=== PATIENT | female | born 1965 | race African-American/Black ===

== ENCOUNTER 2020-02-19 08:01 | Day surgery (SDC) | payer OTHER ==
[2020-02-19] VITALS (9 sets, daily range): BP systolic 124–139; BP diastolic 59–85
[~2020-02-19] VITALS: Ht 170.2 cm; Wt 68.0 kg
[~2020-02-19 08:01] MED LIST: HYDROXYCHLOROQ200 M1 PO
--- NOTE | 2020-02-19 09:33 | Anethesia Preoperative Eval ---
Anesthesia Pre-op PMH/ROS General Date of Evaluation: Feb 19, 2020 Time of Evaluation: 09:31 Anesthesiologist: Teri ASA Score: ASA 2 Mallampati Score Class I : Soft palate, uvula, fauces, pillars visible Class II: Soft palate, uvula, fauces visible Class III: Soft palate, base of uvula visible Class IV: Only hard plate visible Mallampati Classification: Class II Surgeon: Bria Diagnosis: Abdominal pain Surgical Procedure: EGD Colonoscopy Anesthesia History: none Family History: no anesthesia problems Allergies: Coded Allergies: PENICILLINS (Verified Adverse Reaction, Severe, Rash, 02/19/20) SWELLING NECK ,FACE Medications: see eMAR Patient NPO?: Yes Past Medical History Cardiovascular: Reports: HTN - borderline; Denies: CAD, OK, valve dz, arrhythmia, other Pulmonary: Denies: asthma, COPD, ÁNGEL, other Gastrointestinal/Genitourinary: Reports: GERD; Denies: CRI, ESRD, other Neurologic/Psychiatric: Reports: depression/anxiety; Denies: dementia, CVA, TIA, other Endocrine: Denies: DM, hypothyroidism, steroids, other HEENT: Denies: cataract (L), cataract (R), glaucoma, BISHOP PAIUTE (L), BISHOP PAIUTE (R), other Hematology/Immune: Denies: anemia, DVT, bleeding disorder, other Musculoskeletal/Integumentary: Denies: OA, RA, DJD, DDD, edema, other PMH Narrative: as above PSxH Narrative: See H&P Anesthesia Pre-op Phys. Exam Physician Exam Last Vital Signs Date Time Temp Pulse Resp B/P (MAP) Pulse Ox O2 Delivery O2 Flow Rate FiO2 02/19/20 08:17 97.4 92 18 128/82 97 Room Air Constitutional: NAD Neurologic: CN 2-12 intact Cardiovascular: RRR, no M/R/G Respiratory: CTA Gastrointestinal: S/NT/ND Airway Exam Mallampati Score: Class II MO: full Neck: stiff ROM: full Teeth: intact Dentures: no upper, no lower Anesthesia Pre-op A/P Risk Assessment & Plan Assessment: ASA2 Plan: MAC Status Change Before Surgery: No Chung Williamson MD Feb 19, 2020 09:33
[2020-02-19] MEDS ORDERED: LR 1000ml 1,000 ML IVLG SCH (09:45)
[2020-02-19] MEDS ORDERED: fentaNYL 100 mcg/2 mL IV PRN (09:45)
[2020-02-19] MEDS ORDERED: Midazolam 2mg/2ml Inj ONE (09:50)
[2020-02-19] MEDS ORDERED: LR 1000ml ONE (10:00)
[2020-02-19] MEDS ORDERED: fentaNYL 100 mcg/2 mL IV ONE (10:00)
--- NOTE | 2020-02-19 10:06 | Pre-Procedure Note/Attestation ---
Pre-Procedure Note/Attestation Complete Prior to Procedure Planned Procedure: not applicable Procedure Narrative: esophagogastroduodenoscopy colon Indications for Procedure Pre-Operative Diagnosis: abd pain screening Attestation I attest that I discussed the nature of the procedure; its benefits; risks and complications; and alternatives (and the risks and benefits of such alternatives ), prior to the procedure, with the patient (or the patient's legal sales representative groceries). I attest that, if there was a reasonable possibility of needing a blood transfusion, the patient (or the patient's legal sales representative groceries) was given the [facility] standardized written summary, pursuant to the [place] Blood Safety Act ([place] Health and Safety Code # 1645, as amended). I attest that I re-evaluated the patient just prior to the surgery and that there has been no change in the patient's H&P, except as documented below: Viviana Kelly MD Feb 19, 2020 10:06
--- NOTE | 2020-02-19 10:07 | Short Stay Surgery H&P ---
History of Present Illness History of Present Illness Chief Complaint see H&P HPI Nay Hurst is a 55 year old female who was admitted on for Abdominal Pain Patient History Allergies: Coded Allergies: PENICILLINS (Verified Adverse Reaction, Severe, Rash, 02/19/20) SWELLING NECK ,FACE Medication History Scheduled Hydroxychloroquine Sulfate (Hydroxychloroquine Sulfate), 200 MG PO DAILY, (Reported) Physical Exam Vital Signs Last Vital Signs Date Time Temp Pulse Resp B/P (MAP) Pulse Ox O2 Delivery O2 Flow Rate FiO2 02/19/20 08:17 97.4 92 18 128/82 97 Room Air Plan Attestation Are the patient's medical conditions optimized for surgery? Viviana Kelly MD Feb 19, 2020 10:06
--- NOTE | 2020-02-19 10:48 | Immediate Post-Op Evaluation ---
Immediate Post-Op Evalulation Immediate Post-Op Evalulation Procedure: EGD Colonoscopy Date of Evaluation: Feb 19, 2020 Time of Evaluation: 10:47 IV Fluids: 700 Blood Products: none Estimated Blood Loss: none Urinary Output: none Blood Pressure Systolic: 128 Blood Pressure Diastolic: 86 Pulse Rate: 84 Respiratory Rate: 20 O2 Sat by Pulse Oximetry: 99 Temperature (Fahrenheit): 97.6 Pain Score (1-10): 1 Nausea: No Vomiting: No Complications NONE Patient Status: awake, patent, none Hydration Status: adequate Chung Williamson MD Feb 19, 2020 10:48
--- NOTE | 2020-02-19 10:52 | Endoscopy Procedure Note ---
Endoscopy Procedure Note General Indication for Procedure: abd pain, screening Procedures Performed: EGD, colonoscopy Operative Findings/Diagnosis: diverticulosis Specimen: yes Pt Tolerated Procedure Well: Yes Estimated Blood Loss: none Anesthesia Anesthesiologist: brooklynn Anesthesia: MAC Medications Medication Given: see anesthesia record Inserted Devices Implant(s) used?: No GI Core Measures 50 yrs or older w/o bx or poly: Yes 10yrs. F/U recommended: Yes If not recommended, why?: 18 years or older w/prev. colo: No <3yrs. since last colonoscopy: No Med reason:<3 yrs.: System Reason:<3 yrs.: Last colonoscopy >= to 3yrs: Yes Viviana Kelly MD Feb 19, 2020 10:52
--- NOTE | 2020-02-19 10:54 | Brief Operative Note ---
Immediate Post Operative Note Operative Note Chief Complaint: abd pain, screen Pre-op Diagnosis: abd pain screening Procedure: esophagogastroduodenoscopy colon Post-op Diagnosis: diverticulosis Surgeon: hollie Anesthesiologist: brooklynn Anesthesia: MAC, moderate sedation Specimen: yes Complications: none Condition: stable Fluids: per anesthesia Estimated Blood Loss: none Drains: none Implant(s) used?: No Viviana Kelly MD Feb 19, 2020 10:54
--- NOTE | 2020-02-19 12:10 | 48 Hour Post Anesthesia Eval ---
Post Anesthesia Evaluation Procedure: EGD Colonoscopy Date of Evaluation: Feb 19, 2020 Time of Evaluation: 12:09 Blood Pressure Systolic: 136 0: 79 Pulse Rate: 82 Respiratory Rate: 20 Temperature (Fahrenheit): 97.6 O2 Sat by Pulse Oximetry: 98 Airway: patent Nausea: No Vomiting: No Pain Intensity: 1 Hydration Status: adequate Cardiopulmonary Status: stable Mental Status/LOC: patient returned to baseline Follow-up Care/Observations: n/a Post-Anesthesia Complications: none Follow-up care needed: ready to discharge Chung Williamson MD Feb 19, 2020 12:10
--- NOTE | 2020-02-19 23:00 | Procedure Note ---
DATE OF PROCEDURE: 02/19/2020 GASTROENTEROLOGY PROCEDURE PROCEDURE: Upper gastrointestinal endoscopy with biopsy as well as colonoscopy. SURGEON: Viviana Kelly M.D. ANESTHESIA: Please see the separate anesthesiologist notes for details. PRE-ENDOSCOPIC DIAGNOSES: 1. Screening colonoscopy. 2. Abdominal pain and a history of gastric cancer. POST-ENDOSCOPIC DIAGNOSES: 1. Normal upper endoscopy, status post random biopsies of the proximal and distal stomach. 2. Mild sigmoid diverticulosis. 3. Otherwise normal colonoscopy including 10 cm of the terminal ileum. DESCRIPTION OF PROCEDURE: The procedure, its risks, indications, alternatives, and possible complications including, but not limited to, bleeding, infection, perforation, , and anesthesia complications were explained to the patient and informed consent was obtained. The patient was then sedated in the left lateral decubitus position. A diagnostic upper endoscope was introduced through oropharynx and advanced to the duodenum. The endoscope was gradually withdrawn and the mucosa examined carefully. Examination of the upper gastrointestinal mucosa did not reveal any significant pathology. Random biopsies throughout the proximal stomach and throughout the distal stomach were sent to Pathology for review. The endoscope was removed. A rectal exam was done and a colonoscope was introduced into the rectum and advanced to 10 cm into the terminal ileum. The colonoscope was then gradually withdrawn and mucosa examined carefully. Examination of the colonic mucosa revealed mild sigmoid diverticulosis. There were, however, no polyps and no other abnormalities seen. The retroflexed view of the colon was unremarkable. The colonoscope was removed. The patient was sent to recovery in good condition. COMPLICATIONS: None. RECOMMENDATIONS: 1. High-fiber diet. 2. Follow up biopsy results. 3. Outpatient followup. Thank you for asking me to participate in the care of this patient. Viviana Kelly M.D. DR: SHANNEN JOB#: [id number] CC: Neetu Shelby M.D.; [id number] [facility]; [place], [place] [id number] [place] [address]
== END 2020-02-19 11:55 | disposition home or self-care (01) ==
LOC: GAS 08:01 → EDSEX 10:00 → GAS 11:55
DX: Z12.11 Encounter for screening for malignant neoplasm of colon (principal); Z85.028 Personal history of other malignant neoplasm of stomach; K57.90 Diverticulosis of intestine, part unspecified, without perforation or abscess without bleeding; Z88.0 Allergy status to penicillin; I10 Essential (primary) hypertension; K21.9 Gastro-esophageal reflux disease without esophagitis; F32.9 Major depressive disorder, single episode, unspecified; F41.9 Anxiety disorder, unspecified
CPT/HCPCS: 43239; 45378; 94003; J2250; J2704; J3010; J7120; U0002; U0004; 94150